=== PATIENT | female | born 1960 | race Caucasian/White ===

== ENCOUNTER → 2022-04-03 14:24 | Emergency (ER) | payer OTHER, SELFPAY | END | disposition home or self-care (01) | LOC: CSHERS 14:24 | DX: S72.114A Nondisplaced fracture of greater trochanter of right femur, initial encounter for closed fracture (principal); F17.210 Nicotine dependence, cigarettes, uncomplicated; W01.0XXA Fall on same level from slipping, tripping and stumbling without subsequent striking against object, initial encounter ==